=== PATIENT | male | born 1960 ===

== ENCOUNTER → 2020-07-22 | Outpatient (CLI) | payer OTHER | LOC: SJCVCIMAG 08:36 | PROVIDERS: ATTEND Internal Medicine Cardiovascular Disease | DX: Z13.6 Encounter for screening for cardiovascular disorders (principal); R06.00 Dyspnea, unspecified; R68.89 Other general symptoms and signs; Z82.49 Family history of ischemic heart disease and other diseases of the circulatory system ==